=== PATIENT | male | born 1950 | race Caucasian/White ===

== ENCOUNTER → 2016-07-27 | Outpatient (CLI) | payer BC ==
[~2016-07-27] MED LIST: ASPEC81 PO; B-COCAP2 PO; CHOLTAB3 PO; LEVO125T72 PO; OMEG10007 PO; SIMV10TA2 PO
[2016-07-27 11:03] LABS: HEMATOCRIT 44.8 % (42-52); MEAN CELL VOLUME 89.2 fL (80-100); MEAN CORPUSCULAR HEMOGLOBIN 30.9 pg (25-34); MEAN CORPUSCULAR HGB CONC 34.6 g/dl (32-36); MEAN PLATELET VOLUME 10.2 fL (7.4-10.4); PLATELET COUNT 179 K/uL (130-400); RED BLOOD COUNT 5.02 M/uL (4.7-6.1); WHITE BLOOD COUNT 4.36 K/uL (4.8-10.8)
[2016-07-27 11:18] LABS: ALKALINE PHOSPHATASE 47 U/L (45-117); ALT/SGPT 37 U/L (12-78); AST/SGOT 21 U/L (15-37); BLOOD UREA NITROGEN 13 mg/dl (7-18); BUN/CREATININE RATIO 12.7 (10-20); CALCIUM 8.7 mg/dl (8.5-10.1); CARBON DIOXIDE 28 mmol/L (21-32); CHLORIDE 110 mmol/L (98-107); CHOLESTEROL 161 mg/dl (0-200); CREATININE 0.99 mg/dl (0.60-1.40); GLUCOSE 94 mg/dl (70-99); SODIUM 144 mmol/L (136-145); TRIGLYCERIDES 88 mg/dl (0-150); VERY LOW DENSITY LIPOPROT CALC 18 mg/dl
[2016-07-27 11:20] LABS: ALB/GLOB RATIO 1.1 (0.9-2); CHOLESTEROL/HDL RATIO 3.2; HDL CHOLESTEROL 50 mg/dl; LDL CHOLESTEROL CALCULATED 93 mg/dl; PROSTATE SPECIFIC ANTIGEN < 0.010 ng/ml (0.000-4.000)
[2016-07-27 11:58] LABS: ESTIMATED AVERAGE GLUCOSE 105 mg/dl; HA1C FLAG Normal (Normal)
[2016-07-28 10:18] LABS: C-REACTIVE PROT HIGHSEN 0.4 MG/L
--- NOTE | 2016-08-02 10:31 | CODING QUERY MEDICAL NECESSITY ---
SUPPORTING DIAGNOSIS NEEDED Dr. Rodríguez, A supporting diagnosis is required for the test/procedure performed on this patient in order for us to be reimbursed by the patient's insurance. Please provide a supporting diagnosis for the following test/procedure listed below next to the test name along with your signature. *If there is no additional diagnosis for this patient that would support the following test/procedure please document that below next to the test/procedure. Test(s)/Procedure(s) that require a supporting diagnosis: * ([id number]) B12 VITAMIN LEVEL DIAGNOSIS: * [id number] PSA DIAGNOSIS: * ([id number]) C-REACTIVE PROTEIN DIAGNOSIS: DATE OF SERVICE: 07/27/16 Provider Signature: Date: Thank you Doroteo Boudreaux [facility] Information Management Once completed, please kindly fax back to [phone] For questions please call [phone]
== END | disposition home or self-care (01) ==
LOC: C.LABBC 07:32
PROVIDERS: ATTEND Family Medicine
DX: R73.09 Other abnormal glucose (principal); D51.9 Vitamin B12 deficiency anemia, unspecified; E78.2 Mixed hyperlipidemia; Z85.46 Personal history of malignant neoplasm of prostate